=== PATIENT | male | born 1970 | race Caucasian/White ===

== ENCOUNTER 2021-07-18 13:45 | Emergency (ER) | payer OTHER ==
[~2021-07-18] VITALS: Ht 175.3 cm; Wt 69.4 kg
[~2021-07-18 13:45] MED LIST: ASPIRIN EC81 M1 PO; CARDIZEM CD240 MG PO; DOXYCYCLINE 10100 MG PO; MOBIC15 MG PO; NORCO 5-325 TA1 EACH PO; PREDNISONE 20 M20 MG PO; PROMETHAZINE-C120 ML PO
[2021-07-18 13:59] VITALS: BP 150/92
[2021-07-18 15:53] LABS: ABSOLUTE NEUTROPHILS 8.8 thou/uL (1.4-8.2); BASOPHILS 0.7 % (0.0-2.0); EOSINOPHILS 1.1 % (0.0-3.0); HEMATOCRIT 47.5 % (42.0-52.0); HEMOGLOBIN 15.8 gm/dL (14.0-18.0); LYMPHOCYTES 12.6 % (24.0-44.0); MCH 29.2 pg (26.0-34.0); MCHC 33.4 g/dL (28.0-37.0); MCV 87.5 fL (80.0-100.0); MONOCYTES 8.8 % (1.0-8.0); PLATELET COUNT 305 thou/uL (150-400); POLYS 76.8 % (36.0-66.0); RBC 5.42 mil/uL (4.50-6.00); WBC 11.5 thou/uL (4.0-11.0)
[2021-07-18 16:04] LABS: CALCIUM 9.7 mg/dL (8.5-10.1); CREATININE 0.9 mg/dL (0.7-1.3); POTASSIUM 4.2 mmol/L (3.5-5.1)
[2021-07-18 16:12] LABS: ALBUMIN 4.9 g/dL (3.4-5.0); TOTAL BILIRUBIN 0.4 mg/dL (0.2-1.0)
[2021-07-18] MEDS ORDERED: PEPCID20 MG PO (16:30)
[2021-07-18] MEDS ORDERED: ZOFRAN ODT4 MG PO (16:30)
== END 2021-07-18 16:59 | disposition home or self-care (01) ==
LOC: ER 13:45
PROVIDERS: Emergency Medicine
DX: K29.70 Gastritis, unspecified, without bleeding (principal); Z20.822 Contact with and (suspected) exposure to COVID-19; R11.2 Nausea with vomiting, unspecified; F17.210 Nicotine dependence, cigarettes, uncomplicated; I10 Essential (primary) hypertension; Z79.899 Other long term (current) drug therapy